=== PATIENT | female | born 1960 | race American Indian/Alaskan Native ===

== ENCOUNTER 2021-07-17 13:15 | Emergency (ER) | payer OTHER, MEDICARE ==
[2021-07-17] MEDS ORDERED: SODIUM CHLORIDE 0.9% 1000 ML 1,000 ML IV ONE (13:58)
[2021-07-17] MEDS ORDERED: MECLIZINE 25 MG TAB PO ONE (13:58)
[2021-07-17] MEDS ORDERED: SODIUM CHLORIDE 0.9% 500 ML 500 ML IV ONE (14:00)
--- NOTE | 2021-07-17 14:00 | Emergency Department Report ---
ED General Adult HPI - General Chief complaint: Dizziness Stated complaint: DIZZY/FREQUENT URINATION Time Seen by Provider: 07/17/21 13:40 Source: EMS Mode of arrival: Stretcher Limitations: No Limitations - History of Present Illness Initial comments: This is a 60-year-old female with medical history of hypertension also congestive heart failure; denies history of diabetes, myocardial infarction, or stroke came in today with concerns of dizziness since yesterday at 11 PM. According to the patient she was doing nothing when this started. According patient nothing makes it better with nothing makes it worse she denies movement such as turning her head suddenly would make it worsen. Patient denies any other symptoms denies fever shortness were blurred vision lightheadedness headache vertigo loss of balance tinnitus ear pain runny nose sore throat loss of taste loss of smell chest pain palpitation short of breath cough abdominal pain nausea vomiting diarrhea constipation joint pain muscle pain new rash and heat or cold intolerance. Severity scale (0 -10): 0 - Related Data Previous Rx's Medication Instructions Recorded Last Taken Type Amoxicillin/K Clav Tab [Augmentin 1 tab PO Q12HR 7 Days #14 tab 07/17/21 Unknown Rx 875 mg] Oxybutynin [Ditropan] 5 mg PO BID 5 Days #10 07/17/21 Unknown Rx Allergies Allergy/AdvReac Type Severity Reaction Status Date / Time lisinopril Allergy Mild Shortness Verified 07/17/21 13:30 of Breath tolterodine [From Detrol] Allergy Mild Rash Verified 07/17/21 13:56 ED Review of Systems ROS: Stated complaint: DIZZY/FREQUENT URINATION Other details as noted in HPI Comment: All other systems reviewed and negative Constitutional: no symptoms reported, see HPI Eyes: as per HPI ENT: as per HPI Respiratory: no symptoms reported, see HPI Cardiovascular: as per HPI Endocrine: no symptoms reported, see HPI Gastrointestinal: as per HPI Genitourinary: as per HPI Musculoskeletal: as per HPI Skin: as per HPI Neurological: as per HPI Psychiatric: as per HPI Hematological/Lymphatic: as per HPI ED Past Medical Hx - Past Medical History Previous Medical History?: Yes Hx Hypertension: Yes Hx Congestive Heart Failure: Yes Hx Arthritis: Yes Hx Psychiatric Treatment: Yes - Surgical History Past Surgical History?: No - Social History Smoking Status: Never Smoker Substance Use Type: None - Medications Home Medications: Home Medications Medication Instructions Recorded Confirmed Last Taken Type Amoxicillin/K Clav Tab [Augmentin 1 tab PO Q12HR 7 Days #14 tab 07/17/21 Unknown Rx 875 mg] Oxybutynin [Ditropan] 5 mg PO BID 5 Days #10 07/17/21 Unknown Rx ED Physical Exam - General Limitations: No Limitations General appearance: alert - Head Head exam: Present: atraumatic, normocephalic, normal inspection - Eye Eye exam: Present: normal appearance Pupils: Present: normal accommodation - ENT ENT exam: Present: normal exam, normal orophraynx - Neck Neck exam: Present: normal inspection, full ROM - Respiratory Respiratory exam: Present: normal lung sounds bilaterally - Cardiovascular Cardiovascular Exam: Present: regular rate, normal rhythm, normal heart sounds - GI/Abdominal GI/Abdominal exam: Present: soft - Extremities Exam Extremities exam: Present: normal inspection, full ROM, normal capillary refill - Back Exam Back exam: Present: normal inspection, full ROM - Neurological Exam Neurological exam: Present: alert, altered, oriented X3, CN II-XII intact - Skin Skin exam: Present: normal color ED Course Vital Signs 07/17/21 07/17/21 07/17/21 13:19 13:31 13:42 Temperature 97.9 F Pulse Rate 84 73 Respiratory 20 17 Rate Blood Pressure 174/89 Blood Pressure 184/94 168/90 [Left] O2 Sat by Pulse 98 97 98 Oximetry 07/17/21 07/17/21 07/17/21 13:46 13:53 14:00 Temperature Pulse Rate 75 76 72 Respiratory 17 15 Rate Blood Pressure 174/89 168/90 Blood Pressure [Left] O2 Sat by Pulse 97 96 Oximetry 07/17/21 07/17/21 07/17/21 14:43 14:46 15:00 Temperature Pulse Rate Respiratory Rate Blood Pressure 177/96 149/122 149/122 Blood Pressure [Left] O2 Sat by Pulse 100 98 96 Oximetry 07/17/21 07/17/21 07/17/21 15:16 15:21 15:30 Temperature Pulse Rate 68 Respiratory 15 Rate Blood Pressure 149/122 158/98 Blood Pressure 158/98 [Left] O2 Sat by Pulse 89 97 98 Oximetry 07/17/21 07/17/21 07/17/21 15:46 16:00 16:16 Temperature Pulse Rate Respiratory Rate Blood Pressure 153/99 154/97 142/97 Blood Pressure [Left] O2 Sat by Pulse 98 97 98 Oximetry 07/17/21 07/17/21 07/17/21 16:30 16:46 17:00 Temperature Pulse Rate 72 71 Respiratory 14 12 Rate Blood Pressure 154/89 159/107 151/78 Blood Pressure [Left] O2 Sat by Pulse 96 96 97 Oximetry 07/17/21 17:16 Temperature Pulse Rate 72 Respiratory 15 Rate Blood Pressure 171/75 Blood Pressure [Left] O2 Sat by Pulse 97 Oximetry - Reevaluation(s) Reevaluation #1: 07/17/21 17:49 LABS ARE UNREMARKABLE. IMAGE WITH SINUSITIS WHICH I WILL START PATIENT ON AUGMENTIN. PATIENT INFORMED TO FOLLOW UP WITH PCP WITHIN 3 DAYS. RETURN TO ER IF ANY NEW SYMPTOMS OR CURRENT SYMPTOM WORSEN. ED Medical Decision Making - Lab Data Result diagrams: 07/17/21 14:03 07/17/21 14:03 - EKG Data -: EKG Interpreted by Me (No ST segment elevation with depression; there is no Wellens wave.) EKG shows normal: sinus rhythm Rate: normal Critical care attestation.: If time is entered above; I have spent that time in minutes in the direct care o f this critically ill patient, excluding procedure time. ED Disposition Clinical Impression: Sinusitis, Overactive bladder Disposition: 01 HOME / SELF CARE / HOMELESS Is pt being admited?: No Does the pt Need Aspirin: No Condition: Stable Instructions: Urinary Incontinence, Sinusitis, Adult, [id number] Additional Instructions: Make a follow-up appointment with your primary care provider to be seen within 3 days for ER visit follow-up. Prescriptions: Amoxicillin/K Clav Tab [Augmentin 875 mg] 1 tab PO Q12HR 7 Days #14 tab Oxybutynin [Ditropan] 5 mg PO BID 5 Days #10 Time of Disposition: 17:48
[2021-07-17 14:23] LABS: Hematocrit 43.9 % (30.3-42.9); Hemoglobin 13.7 gm/dl (10.1-14.3); Mean Corpuscular HGB Conc 31 % (30-34); Mean Corpuscular Volume 80 fl (79-97); Platelet Count 176 K/mm3 (140-440); Red Blood Count 5.46 M/mm3 (3.65-5.03); Red Cell Distribution Width 16.7 % (13.2-15.2)
[2021-07-17 14:46] LABS: Alanine Aminotransferase 13 units/L (7-56); Albumin 3.8 g/dL (3.9-5); Blood Urea Nitrogen 14 mg/dL (7-17); Calcium 9.3 mg/dL (8.4-10.2); Hemolysis Index 19
--- NOTE | 2021-07-17 14:47 | Cat Scan Report ---
CT head/brain wo con INDICATION / CLINICAL INFORMATION: 60 years Female; DIZZINESS. TECHNIQUE: Routine CT head without contrast. All CT scans at this location are performed using CT dos e reduction for ALARA by means of automated exposure control. COMPARISON: None. FINDINGS: BRAIN / INTRACRANIAL CONTENTS: No acute hemorrhage, mass effect, midline shift, hydrocephalus, or acu te, large territorial infarct. No signs of significant atrophy or chronic infarct. No significant whi te matter abnormality seen. CRANIOCERVICAL JUNCTION: No significant abnormality. ORBITS: No significant abnormality of visualized orbits. SINUSES / MASTOIDS: Significant ethmoid opacification seen on the right, as well as the right maxilla ry antrum. High attenuation material seen, which may be related to chronic secretions or a fungal/hem orrhagic component of sinusitis. ADDITIONAL FINDINGS: Extensive calcification is seen between the dens and C1 vertebrae. This finding is only partially visualized. IMPRESSION: 1. No focal mass, hemorrhage, hydrocephalus, or acute, large territorial infarct. 2. Significant sinus disease on the right, as described above. Signer Name: Bill Sharp MD, III Signed: 07/17/2021 2:43 PM Workstation Name: [id number]
[2021-07-17 14:58] LABS: BUN/Creatinine Ratio 20
[2021-07-17 15:41] LABS: Bilirubin,Urine NEG (Negative); Blood,Urine NEG (Negative); Color,Urine Straw (Yellow); Mucus,Urine FEW /HPF; Protein,Urine <15 mg/dL mg/dL (Negative); RBC,Urine < 1.0 /HPF (0.0-6.0); Urobilinogen,Urine < 2.0 mg/dL (<2.0); WBC,Urine < 1.0 /HPF (0.0-6.0)
[2021-07-17 17:22] VITALS: BP 171/75
--- NOTE | 2021-07-20 18:38 | Electrocardiograph Report ---
[facility] Test Date: 2021-07-17 Test Time: 13:46:29 Pat Name: BYRON WALTER Department: Room: Gender: F Bow Maker: DINH : 1960 Requested By: JEFFERY KHAN Order Number: [id number] Reading MD: Ezio Daley Measurements Intervals [place] Rate: 73 P: 13 NV: 204 QRS: -24 QRSD: 107 T: 39 QT: 431 QTc: 476 Interpretive Statements Sinus rhythm Multiple ventricular premature complexes Left ventricular hypertrophy Anterior Q waves, possibly due to LVH No previous ECG available for comparison Electronically Signed On 07-20-2021 18:38:17 EDT by Ezio Daley
== END 2021-07-17 18:57 | disposition home or self-care (01) ==
LOC: ED 13:15
DX: J32.9 Chronic sinusitis, unspecified (principal); N32.81 Overactive bladder; I11.0 Hypertensive heart disease with heart failure; I50.9 Heart failure, unspecified; M19.90 Unspecified osteoarthritis, unspecified site; Z88.8 Allergy status to other drugs, medicaments and biological substances; Z88.9 Allergy status to unspecified drugs, medicaments and biological substances
CPT/HCPCS: 36415; 70450; 80053; 81001; 83735; 85027; 93005; 99284; J7040

== ENCOUNTER 2021-08-08 09:45 | Emergency (ER) | payer OTHER, MEDICARE ==
[2021-08-08 09:49] VITALS: BP 169/96
--- NOTE | 2021-08-08 09:55 | Emergency Department Report ---
ED General Adult HPI - General Chief complaint: Dizziness Stated complaint: Dizzy and lightheaded for 1 month. Time Seen by Provider: 08/08/21 09:52 Source: patient, EMS ( EMS documentation not available at time of chart dictation ), RN notes reviewed, old records reviewed Mode of arrival: Stretcher Limitations: No Limitations - History of Present Illness Initial comments: The patient was evaluated in the emergency department for symptoms described in the history of present illness. He/she was evaluated in the context of the global COVID-19 pandemic, which necessitated consideration that the patient might be at risk for infection with the virus that causes COVID-19. Institutional protocols and algorithms that pertain to the evaluation of patie nts at risk for COVID-19 are in a state of rapid change based on information released by regulatory bodies including the CDC and federal and state organizations. These policies and algorithms were followed during the patient's care in the emergency department. Please note that these policies, procedures and recommendations changed on a rapid basis. This is a 60-year-old female. Her past medical history includes hypertension, and psychiatric disease/schizophrenia. Sister reports that current medications include Clozaril, aripiprazole, aspirin, HCTZ, and metoprolol. In the patient's best estimation, she has been maintained on these medications for quite some time, and they have not been adjusted or changed recently. The patient presents to the department today with a complaint of painless dizziness and lightheadedness for about 1 month. She reports that she has a cane and walker at home. She denies focal extremity weakness or numbness. She denies chest pain and new/different shortness of breath. She reported to nursing team that she has follow-up with a chemical supervisor later on this week. She denies homicidality and suicidality. -: month(s) Consistency: constant Improves with: rest Worsens with: movement - Related Data Home Medications Medication Instructions Recorded Confirmed Last Taken Aripiprazole 5 mg PO DAILY 08/08/21 08/08/21 Unknown Aspirin 81 mg PO DAILY 08/08/21 08/08/21 Unknown Clonazepam 200 mg PO HS 08/08/21 08/08/21 Unknown Metoprolol 25 mg PO DAILY 08/08/21 08/08/21 Unknown hydroCHLOROthiazide 25 mg PO DAILY 08/08/21 08/08/21 Unknown Allergies Allergy/AdvReac Type Severity Reaction Status Date / Time lisinopril Allergy Mild Shortness Verified 08/08/21 09:49 of Breath tolterodine [From Detrol] Allergy Mild Rash Verified 08/08/21 09:49 ED Review of Systems ROS: Stated complaint: HEADACHE Other details as noted in HPI Constitutional: denies: fever Eyes: denies: eye discharge ENT: denies: epistaxis Respiratory: denies: cough Cardiovascular: denies: chest pain, palpitations, syncope Gastrointestinal: denies: abdominal pain, hematemesis, melena, hematochezia Genitourinary: denies: dysuria Musculoskeletal: back pain, arthralgia, myalgia Neurological: headache, weakness Psychiatric: denies: auditory hallucinations, visual hallucinations, homicidal thoughts, suicidal thoughts ED Past Medical Hx - Past Medical History Hx Hypertension: Yes Hx Congestive Heart Failure: Yes Hx Arthritis: Yes Hx Psychiatric Treatment: Yes - Social History Smoking Status: Never Smoker Substance Use Type: None - Medications Home Medications: Home Medications Medication Instructions Recorded Confirmed Last Taken Type Aripiprazole 5 mg PO DAILY 08/08/21 08/08/21 Unknown History Aspirin 81 mg PO DAILY 08/08/21 08/08/21 Unknown History Clonazepam 200 mg PO HS 08/08/21 08/08/21 Unknown History Metoprolol 25 mg PO DAILY 08/08/21 08/08/21 Unknown History hydroCHLOROthiazide 25 mg PO DAILY 08/08/21 08/08/21 Unknown History ED Physical Exam - General Limitations: No Limitations General appearance: alert, in no apparent distress, obese - Head Head exam: Present: atraumatic, normocephalic - Eye Eye exam: Present: normal appearance, EOMI, other (Visual acuity is intact to finger counting and color perception at a close distance.). Absent: nystagmus - ENT ENT exam: Present: normal exam, normal orophraynx, mucous membranes moist, normal external ear exam - Neck Neck exam: Present: normal inspection, full ROM. Absent: tenderness, meningismus - Respiratory Respiratory exam: Present: normal lung sounds bilaterally. Absent: respiratory distress, wheezes, rales, rhonchi, stridor, decreased breath sounds - Cardiovascular Cardiovascular Exam: Present: regular rate, normal rhythm, normal heart sounds. Absent: bradycardia, tachycardia, irregular rhythm, systolic murmur, diastolic murmur, rubs, gallop - GI/Abdominal GI/Abdominal exam: Present: soft. Absent: distended, tenderness, guarding, rebound, rigid, pulsatile mass - Extremities Exam Extremities exam: Present: normal inspection, full ROM, pedal edema (1+ edema in the bilateral lower extremities), other (2+ pulses noted in the bilateral upper and lower extremities. There is no palpable cord. negative Homans sign. Muscular compartments are soft. The pelvis is stable.). Absent: calf tenderness - Back Exam Back exam: Present: normal inspection. Absent: tenderness, CVA tenderness (R), CVA tenderness (L), paraspinal tenderness, vertebral tenderness - Neurological Exam Neurological exam: Present: alert (Normal [id number] bilaterally. Miigdr-lo-bixs intact bilaterally. There is no pronator drift. There is no dysmetria), oriented X3, other (No facial droop. Tongue midline. Extraocular movements intact bilaterally. Facial sensation intact to light touch in V1, V2, V3 distribution bilaterally. 5 and a 5 strength in 4 extremities. Sensation intact to light touch in 4 extremities.). Absent: motor sensory deficit - Psychiatric Psychiatric exam: Absent: homicidal ideation, suicidal ideation - Skin Skin exam: Present: warm, dry, intact, normal color. Absent: rash ED Course Vital Signs 08/08/21 08/08/21 09:46 10:07 Temperature 98.1 F Pulse Rate 78 Blood Pressure 169/96 [Left] O2 Sat by Pulse 98 100 Oximetry - Reevaluation(s) Reevaluation #1: 08/08/21 12:51 Differential diagnosis, include but not limited to: Orthostasis, vagal event, electrolyte derangement, polypharmacy, structural cardiac disease, intracranial hemorrhage Assessment and plan: 60-year-old female, who is afebrile, with reassuring vital signs, who is clinically sober, with a GCS of 15, NIH score of 0, with a complaint of nonspecific dizziness x1 month. She has no lateralizing neurologic signs. There is no past-pointing, there is normal oiih-fl-uygf, and there is a negative pronator drift. Her laboratory studies are essentially nonactionable, and unremarkable. Her EKG is nonspecific, but does not demonstrate acute findings. Patient denies travel, surgery, immobilization, DVT/PE risk factors. She is not currently tachycardic, tachypneic or hypoxic, she is low risk by Wells criteria for pulmonary embolism. I suspect polypharmacy and physical deconditioning. Noncontrast CT scan of the brain showed no acute findings. We will recommend that the patient follow-up with her outpatient primary care doctor or chemical supervisor, in addition to her outpatient prescribing psychiatrist. Many of her medications can cause dizziness. She may wish to consult with her outpatient providing physicians, to determine whether or not de-escalation of her outpatient medications would be reasonable. Patient is also recommended to start outpatient physical therapy and rehabilitation. She lives at home with her sister, and has a walker, as well as a cane. She is observed in this department for hours without clinical decompensation. - Pulse Oximetry Interpretation Digit-Finger Initial Pulse Oximetry Readin O2 Sat by Pulse Oximetry: 99 Actions Taken: none ED Medical Decision Making - Lab Data Result diagrams: 08/08/21 11:04 08/08/21 11:04 Vital Signs 08/08/21 08/08/21 09:46 10:07 Temperature 98.1 F Pulse Rate 78 Blood Pressure 169/96 [Left] O2 Sat by Pulse 98 100 Oximetry Lab Results 08/08/21 08/08/21 08/08/21 Range/Units 11:04 11:04 11:04 WBC 8.2 (4.5-11.0) K/mm3 RBC 5.09 H (3.65-5.03) M/mm3 Hgb 13.0 (10.1-14.3) gm/dl Hct 40.6 (30.3-42.9) % MCV 80 (79-97) fl MCH 26 L (28-32) pg MCHC 32 (30-34) % RDW 16.2 H (13.2-15.2) % Plt Count 171 (140-440) K/mm3 PT 12.9 (12.2-14.9) Sec. INR 0.88 (0.87-1.13) Sodium 141 (137-145) mmol/L Potassium 3.8 (3.6-5.0) mmol/L Chloride 103.6 (98-107) mmol/L Carbon Dioxide 27 (22-30) mmol/L Anion Gap 14 mmol/L BUN 14 (7-17) mg/dL Creatinine 0.7 (0.6-1.2) mg/dL Estimated GFR > 60 ml/min BUN/Creatinine Ratio 20 % Glucose 93 (65-100) mg/dL Calcium 9.1 (8.4-10.2) mg/dL Magnesium 2.10 (1.7-2.3) mg/dL Total Bilirubin 0.30 (0.1-1.2) mg/dL AST 18 (5-40) units/L ALT 20 (7-56) units/L Alkaline Phosphatase 104 (35-129) units/L Total Protein 7.8 (6.3-8.2) g/dL Albumin 4.0 (3.9-5) g/dL Albumin/Globulin Ratio 1.1 % TSH (0.270-4.200) mlU/mL Salicylates (2.8-20.0) mg/dL Acetaminophen (10.0-30.0) ug/mL 08/08/21 08/08/21 08/08/21 Range/Units 11:04 11:04 11:04 WBC (4.5-11.0) K/mm3 RBC (3.65-5.03) M/mm3 Hgb (10.1-14.3) gm/dl Hct (30.3-42.9) % MCV (79-97) fl MCH (28-32) pg MCHC (30-34) % RDW (13.2-15.2) % Plt Count (140-440) K/mm3 PT (12.2-14.9) Sec. INR (0.87-1.13) Sodium (137-145) mmol/L Potassium (3.6-5.0) mmol/L Chloride (98-107) mmol/L Carbon Dioxide (22-30) mmol/L Anion Gap mmol/L BUN (7-17) mg/dL Creatinine (0.6-1.2) mg/dL Estimated GFR ml/min BUN/Creatinine Ratio % Glucose (65-100) mg/dL Calcium (8.4-10.2) mg/dL Magnesium (1.7-2.3) mg/dL Total Bilirubin (0.1-1.2) mg/dL AST (5-40) units/L ALT (7-56) units/L Alkaline Phosphatase (35-129) units/L Total Protein (6.3-8.2) g/dL Albumin (3.9-5) g/dL Albumin/Globulin Ratio % TSH 1.520 (0.270-4.200) mlU/mL Salicylates < 0.3 L (2.8-20.0) mg/dL Acetaminophen 5.0 L (10.0-30.0) ug/mL - EKG Data -: EKG Interpreted by Me EKG shows normal: sinus rhythm Rate: normal - EKG Data When compared to previous EKG there are: previous EKG unavailable 08/08/21 12:53 There is no prior EKG available for comparison. The EKG is interpreted at 10: 00 Sinus rhythm, rate 73 bpm. Left axis deviation, left anterior fascicular block, normal P wave axis. QTC 4 7 4 ms. PVC. Poor R wave progression. First- degree AV block. Incomplete left bundle branch block. This is an abnormal EKG. This is not a STEMI. - Radiology Data Radiology results: pending, report reviewed, image reviewed CT HEAD WITHOUT CONTRAST INDICATION / CLINICAL INFORMATION: dizzy. TECHNIQUE: All CT scans at this location are performed using CT dose reduction for ALARA by means of automated exposure control. COMPARISON: None available. FINDINGS: HEMORRHAGE: None. EXTRA-AXIAL SPACES: Normal in size and morphology for the patient's age. VENTRICULAR SYSTEM: Normal in size and morphology for the patient's age. CEREBRAL PARENCHYMA: No significant abnormality. No acute territorial infarct. MIDLINE SHIFT / HERNIATION: None. CEREBELLUM / BRAINSTEM: No significant abnormality. ORBITS: Normal as visualized SOFT TISSUES: No significant abnormality. SKULL: No significant abnormality. PARANASAL SINUSES / MASTOID AIR CELLS: There is opacification of the paranasal sinuses. ADDITIONAL FINDINGS: None. IMPRESSION: 1. No acute intracranial abnormality. Signer Name: Oliver Waters DO Signed: 08/08/2021 11:45 AM Critical care attestation.: If time is entered above; I have spent that time in minutes in the direct care of this critically ill patient, excluding procedure time. ED Disposition Clinical Impression: Polypharmacy, Dizziness, Elevated blood pressure reading Disposition: HOME / SELF CARE / HOMELESS Is pt being admited?: No Does the pt Need Aspirin: No Condition: Good Additional Instructions: Patient is on a number of medications which may cause dizziness, including her Clozaril, as well as aripiprazole. In addition, metoprolol/blood pressure medications may cause dizziness We recommend that the patient follow-up with her outpatient prescribing physicians, to determine if her medications can be de-escalated. We recommend that the patient not drive, or operate motor vehicles until cleared to do so by her primary care physicians and/or chemical supervisor. Please follow-up with your ou tpatient primary care doctor or chemical supervisor within the next week, to determine if patient is eligible to have her blood pressure medications de-escalated. Please follow-up with your outpatient psychiatrist to determine if your outpatient psychiatric medications are suitable to be de-escalated. Laboratory studies here in the emergency room were nonactionable. A noncontrast CT scan of the brain showed no acute or emergent findings. When ambulating, if ambulating, please use a cane, or rolling walker preferably. Please return to the emergency room right away with new pain, worsened pain, mi gration of pain, projectile vomiting, change in mental status, confusion, inability tolerate liquid feeds, new, worsened or different symptoms not present on the initial emergency room evaluation Referrals: [facility] [Provider Group] - as needed
[2021-08-08 11:47] LABS: Hematocrit 40.6 % (30.3-42.9); Mean Corpuscular HGB Conc 32 % (30-34); Mean Corpuscular Volume 80 fl (79-97); Platelet Count 171 K/mm3 (140-440); Red Blood Count 5.09 M/mm3 (3.65-5.03); Red Cell Distribution Width 16.2 % (13.2-15.2)
[2021-08-08 11:57] LABS: INR 0.88 (0.87-1.13)
[2021-08-08 12:00] LABS: Alanine Aminotransferase 20 units/L (7-56); BUN/Creatinine Ratio 20; Blood Urea Nitrogen 14 mg/dL (7-17); Calcium 9.1 mg/dL (8.4-10.2); Hemolysis Index 18
--- NOTE | 2021-08-08 12:49 | Cat Scan Report ---
CT HEAD WITHOUT CONTRAST INDICATION / CLINICAL INFORMATION: dizzy. TECHNIQUE: All CT scans at this location are performed using CT dose reduction for ALARA by means of automated exposure control. COMPARISON: None available. FINDINGS: HEMORRHAGE: None. EXTRA-AXIAL SPACES: Normal in size and morphology for the patient's age. VENTRICULAR SYSTEM: Normal in size and morphology for the patient's age. CEREBRAL PARENCHYMA: No significant abnormality. No acute territorial infarct. MIDLINE SHIFT / HERNIATION: None. CEREBELLUM / BRAINSTEM: No significant abnormality. ORBITS: Normal as visualized SOFT TISSUES: No significant abnormality. SKULL: No significant abnormality. PARANASAL SINUSES / MASTOID AIR CELLS: There is opacification of the paranasal sinuses. ADDITIONAL FINDINGS: None. IMPRESSION: 1. No acute intracranial abnormality. Signer Name: Oliver Waters DO Signed: 08/08/2021 12:45 PM Workstation Name: [id number]
--- NOTE | 2021-08-12 11:39 | Electrocardiograph Report ---
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 Electronically Signed On 08-12-2021 11:38:48 EDT by Nitin Hutchinson
== END 2021-08-08 18:35 | disposition home or self-care (01) ==
LOC: ED 09:45
DX: R42 Dizziness and giddiness (principal); I11.9 Hypertensive heart disease without heart failure; I50.9 Heart failure, unspecified; M19.90 Unspecified osteoarthritis, unspecified site; Z88.8 Allergy status to other drugs, medicaments and biological substances
CPT/HCPCS: 36415; 70450; 80053; 80320; 83735; 84443; 85027; 85610; 93005; 99284; G0480